=== PATIENT | female | born 1985 | race Caucasian/White ===

== ENCOUNTER 2016-11-20 18:31 | Emergency (ER) | payer BC, OTHER ==
[~2016-11-20] VITALS: Ht 175.3 cm; Wt 94.3 kg
[2016-11-20] MEDS ORDERED: LIDOCAINE 2% 20 ML (XYLOCAINE) VIAL ONE (18:32)
--- NOTE | 2016-11-20 18:48 | ED Upper Extremity ---
General Chief Complaint: Upper Extremity Stated Complaint: FINGER LAC Source: patient History of Present Illness Time seen by provider: 18:46 Initial Comments To ER with finger deformity right pointer finger after she went up for rebound and the ball struck her finger just prior to arrival. Onset: just prior to arrival Severity: mild Pain/Injury Location: right 2nd finger Allergies and Home Medications Allergies Coded Allergies: No Known Drug Allergies (Unverified , 11/20/16) Home Medications Amoxicillin/Potassium Clav 1 Each Tablet, 1 EACH PO BID, #14 Prescribed by: SHAWN AG on 11/20/161851 Hydrocodone/Acetaminophen 1 Each Tablet, 1 EACH PO Q4H PRN for PAIN-MODERATE TO SEVERE, #10 Prescribed by: SHAWN AG on 11/20/161851 Constitutional: see HPI EENTM: see HPI Respiratory: no symptoms reported Cardiovascular: no symptoms reported Genitourinary: no symptoms reported Musculoskeletal: see HPI Skin: no symptoms reported Psychiatric/Neurological: No Symptoms Reported Past Dzfufbl-Isczct-Evbyhg Hx Patient Social History Recent Foreign Travel: No Contact w/Someone Who Travel: No Physical Exam Vital Signs Vital Sign - Last 12Hours 11/20/16 18:33 Temp 98.1 Pulse 72 Resp 20 B/P (MAP) 123/70 Pulse Ox 97 O2 Delivery Room Air Capillary Refill : General Appearance: WD/WN, no apparent distress HEENT: PERRL/EOMI, normal ENT inspection Neck: non-tender, full range of motion Respiratory: no respiratory distress, no accessory muscle use Gastrointestinal: non tender, soft, no organomegaly Shoulder: normal inspection, non-tender Elbow/Forearm: normal inspection, non-tender, Right Wrist: Yes normal inspection, Yes non-tender Hand: Right, laceration (there is an open dislocation at the PIP joint volar surface right pointer finger. Distally she remains neurovascularly intact. The finger was anesthetized via digital block with 5 mm to 2 percent lidocaine without epinephrine. Distal traction was applied and the joint was reduced. The flexor tendon remains intact. Bleeding is controlled.) Laceration Repair : Wound Location: Upper Extremities Wound Length (cm): 1.5 Wound's Depth, Shape: bone Wound Explored: clean Irrigated w/ Saline (ccs): 700 Anesthesia: 1% Lidocaine Volume Anesthetic (ccs): 5 Suture: Prolene Suture Size: 4-0 Number of Sutures: 7 Layer Closure?: 1 Number Deep Layer Sutures: 0 Progress Digital block with 2 percent lidocaine without epinephrine totaling 5 mL. Joint was then reduced. Flexor tendon remained intact. Wound was then irrigated thoroughly with total of 750 mL of sterile saline. Bleeding was controlled with a finger tourniquet. Wound was then closed with 7 simple interrupted sutures size 4-0 Prolene. Progress/Results/Core Measures Results/Orders Medications Given in ED Current Medications Medications Dose Ordered Sig/Eliseo Route Start Time Stop Time Status Last Admin Dose Admin Lidocaine HCl 20 ml STK-MED ONCE .ROUTE 11/20/16 18:32 11/20/16 18:38 DC 11/20/16 18:41 20 ML Vital Signs/I&O Vital Sign - Last 12Hours 11/20/16 18:33 Temp 98.1 Pulse 72 Resp 20 B/P (MAP) 123/70 Pulse Ox 97 O2 Delivery Room Air Departure Communication Progress Notes Discussed the case with Dr. Navas. He agrees with plan and will see the patient in follow-up next Thursday the . Impression Impression: Primary Impression: open dislocation pointer finger Disposition: HOME, SELF-CARE Condition: Stable Departure-Patient Inst. Decision time for Depature: 18:50 Referrals: TONG NAVAS MD Patient Instructions: Finger Dislocation Add. Discharge Instructions: 1. The risk here is primarily for infection in the short-term. So keep an eye on this for swelling, redness, puslike drainage. Take antibiotics as directed. Wear the splint at all times for the next [address] Navas tomorrow. He would like to see you next Thursday the . All discharge instructions reviewed with patient and/or family. Voiced understanding. Scripts Hydrocodone/Acetaminophen ([place] 5-325 Tablet) 1 Each Tablet 1 EACH PO Q4H Y for PAIN-MODERATE TO SEVERE, #10 TAB Prov: SHAWN AG DRY KILN BURNER 11/20/16 Amoxicillin/Potassium Clav (Augmentin 500-125 Tablet) 1 Each Tablet 1 EACH PO BID, #14 TAB Prov: SHAWN AG DRY KILN BURNER 11/20/16 SHAWN AG DRY KILN BURNER Nov 20, 2016 18:48
[2016-11-20] MEDS ORDERED: HYDR-757 PO (18:52)
[2016-11-20] MEDS ORDERED: AMOX-355 PO (18:52)
--- NOTE | 2016-11-20 18:59 | Diagnostic Imaging Report ---
INDICATION: Trauma, pain to the right index finger. EXAMINATION: Three views of the right index finger were obtained. FINDINGS: No fracture, dislocation or other abnormality. IMPRESSION: Normal right index finger. Dictated by: Dictated on workstation # [id number]
[2016-11-20] MEDS ORDERED: RX-AMOX/CLAV. (AUGMENTIN) 500MG TAB PPK#2 PO STA (19:14)
[2016-11-20] MEDS ORDERED: RX-HYDROCODONE/APAP 5/325 MG #4 TAB PK PO PRN (19:15)
[2016-11-20] MEDS ORDERED: TETANUS,DIPTH,PERTUSS P/F (BOOSTRIX) 0.5 ML VIAL IM ONE (19:30)
[2016-11-20 19:37] VITALS: BP 123/70
== END 2016-11-20 19:37 | disposition home or self-care (01) ==
LOC: ER 18:34
DX: S63.280A Dislocation of proximal interphalangeal joint of right index finger, initial encounter (principal); S61.210A Laceration without foreign body of right index finger without damage to nail, initial encounter; W21.05XA Struck by basketball, initial encounter; Y93.67 Activity, basketball; Z23 Encounter for immunization
CPT/HCPCS: 26755; 29130; 64450; 73140; 90471; 90715

== ENCOUNTER → 2018-07-08 | Outpatient (CLI) | payer BC ==
[~2018-07-08] MED LIST: AMOX-355 PO; HYDR-4226 PO
--- NOTE | 2018-07-08 08:45 | Diagnostic Imaging Report ---
Indication: Left knee injury with pain and swelling AP, oblique and lateral views of left knee are obtained. FINDINGS: No acute fracture or dislocation is identified. No abnormal lytic or sclerotic focus is seen, and there is no radiopaque foreign body. IMPRESSION: No acute abnormality. Dictated by: Dictated on workstation # [id number]
== END ==
LOC: RAD 08:22
PROVIDERS: ATTEND Nurse Practitioner Family
DX: S89.92XA Unspecified injury of left lower leg, initial encounter (principal)
CPT/HCPCS: 73562